=== PATIENT | female | born 1970 | race Caucasian/White ===

== ENCOUNTER 2023-08-15 11:06 | Outpatient (CLI) | payer OTHER, SELFPAY | END 2023-08-15 11:07 | disposition home or self-care (01) | LOC: AMB 08-19 12:06 | PROVIDERS: Visit Provider Internal Medicine | DX: R06.09 Other forms of dyspnea (principal); R19.7 Diarrhea, unspecified | CPT/HCPCS: A0425; A0427 ==

== ENCOUNTER 2023-08-15 11:35 | Emergency (ER) | payer OTHER, SELFPAY ==
[2023-08-15 11:45] VITALS: BP 147/86; PULSE 89; RESP 18; TEMP 36.3; O2SAT 96
--- NOTE | 2023-08-15 12:03 | CRLHL7_ITS ---
For Patients: As a result of the Century Cures Act, medical imaging exams and procedure reports are released immediately into your electronic medical record. You may view this report before your referring provider. If you have questions, please contact your health care provider. INDICATION: Patient with a cough COMPARISON: None TECHNIQUE: PA and lateral views of the chest were acquired FINDINGS: TUBES AND LINES: None. HEART AND MEDIASTINUM: The heart size is normal. The mediastinal contour appears normal for patient age. LUNGS AND PLEURAL SPACES: The lungs appear normal.The pleural spaces are unremarkable. OSSEOUS STRUCTURES: Age-appropriate appearance. No acute focal finding. IMPRESSION: No evidence of active pulmonary disease. Dictated by Cuco Corbin MD @ 08/15/2023 12:23:31 PM (Electronically Signed)
--- NOTE | 2023-08-15 12:05 | ED_ITS ---
HPI - General Adult General Date Seen: 08/15/23 Chief complaint: Dizziness/Vertigo Stated complaint: Elevated heartrate Time Seen by Provider: 08/15/23 11:51 Source: patient, EMS, RN notes reviewed and old records reviewed Mode of arrival: EMS Limitations: no limitations History of Present Illness HPI narrative: Patient is a 52-year-old woman sent here from urgent care by ambulance for frankie luation of multiple symptoms. She is in the area [place] doing some training, staying at a hotel. [place]. For the past few days she says that she has felt fatigued, she has had headache, finds it difficult to take a deep breath, feels her upper abdomen is bloated, is dizzy. No documented fever but she says she felt chilled yesterday. She started Ozempic 6-12 months ago but says she has actually gained weight while taking it, but does note that it has decreased her appetite and sometimes she feels nauseated after she eats. She has not had vomiting. Denies diarrhea. She has not had chest pain although sometimes her chest feels heavy she thinks because her abdomen feels so bloated. She is scheduled for hysterectomy and bladder sling in a couple of weeks. She notes that she has been diagnosed with diabetes but not on any medications. She does not smoke, denies alcohol use. Related Data Home Medications Medication Instructions Recorded Confirmed atorvastatin 20 mg tablet 20 mg PO DAILY 08/15/23 08/15/23 dextroamphetamine-amphetamine 20 1 tab PO 3XD 08/15/23 08/15/23 mg tablet doxepin 10 mg capsule mg PO 08/15/23 08/15/23 fluoxetine 40 mg capsule 40 mg PO DAILY 08/15/23 08/15/23 levothyroxine 200 mcg tablet 200 mcg PO DAILY 08/15/23 08/15/23 semaglutide 1 mg/dose (4 mg/3 mL) mg subcut 08/15/23 08/15/23 subcutaneous pen injector (Ozempic) venlafaxine 75 mg capsule,extended 225 mg PO DAILY 08/15/23 08/15/23 release 24 hr Allergies Allergy/AdvReac Type Severity Reaction Status Date / Time No Known Drug Allergies Allergy Verified 08/15/23 10:40 Review of Systems Status of ROS: Reports: 10 or more systems reviewed and unremarkable except as noted in History and below PFSH PFSH Social History Smoking Status: Never smoker Non-prescribed substance use: denies use Exam Narrative: Exam Narrative: Vital signs as noted above. In general, an alert, nontoxic woman. She was reportedly diaphoretic EN route, she is not diaphoretic at this time. Head: Normocephalic, atraumatic. Eyes: Pupils are equal reactive. Extraocular movements are full. Conjunctivae are normal. No scleral icterus. ENT: Mucous membranes are moist. Throat is normal. Neck: Supple without lymphadenopathy. Heart: Regular rate and rhythm. No murmur or rub. Lungs: Clear bilaterally. No increased work of breathing, crackles or wheezes. Abdomen: Soft and nontender. Nondistended. Extremities: Well perfused. No edema. No calf tenderness. Pulses intact. Neurologic: Patient is alert and oriented to person and place. Speech is fluent. Face is symmetric. Moves all extremities equally. Affect: Normal. Skin: Warm and dry. Well perfused. Const: Vital Signs, click to edit/add: Vital Signs - 24 hr 08/15/23 11:45 Temperature 97.3 F L Pulse Rate [Right Pulse Oximeter] 89 Respiratory Rate 18 Blood Pressure [Ri ght Upper Arm] 147/86 H Pulse Oximetry 96 Oxygen Delivery Me thod Room Air Documenting provider has reviewed patient's vital signs: yes Course Course ED Course: I reviewed labs from Urgent Care which included a CBC and metabolic panel as well as COVID, flu and RSV testing. All of these were normal. Her EKG showed a normal sinus rhythm, ventricular rate of 95 beats per minute. No acute ST segment changes. Exam is unremarkable. Will broaden her workup of it, do a chest x-ray, troponin, D-dimer as well as liver function testing and lactate. At this time no obvious signs of sepsis. Chest x-ray by my review was negative, final radiology report was likewise negative. I did labs to evaluate for possible infection or inflammatory process, thyroid abnormalities, cardiac process, PE. These are all unremarkable, troponin is negative, D-dimer is less than 0.27, lactate is 1.7 CRP is less than 0.5. TSH was depressed at 0.094 but free T4 was normal at 1.5, she does take Synthroid. For now, discussed that symptoms may be viral, but I would recommend follow-up with primary care next week for recheck and make sure that nothing has evolved. In the meantime, if she develops severe symptoms, or new symptoms such as high fever, vomiting etcetera, return at any time to the emergency department. Vital Signs Vital signs: Initial Vital Signs Temperature 97.3 F L 08/15/23 11:45 Temperature Source Temporal Artery Scan 08/15/23 11:45 Pulse Rate 89 08/15/23 11:45 Respiratory Rate 18 08/15/23 11:45 Blood Pressure 147/86 H 08/15/23 11:45 Blood Pressure Mean 106 H 08/15/23 11:45 Blood Pressure Position Sitting 08/15/23 11:45 Pulse Oximetry 96 08/15/23 11:45 Oxygen Delivery Method Room Air 08/15/23 11:45 Vital Signs Temperature 97.3 F L 08/15/23 11:45 Pulse Rate 89 08/15/23 11:45 Respiratory Rate 18 08/15/23 11:45 Blood Pressure 147/86 H 08/15/23 11:45 Pulse Oximetry 96 08/15/23 11:45 Oxygen Delivery Method Room Air 08/15/23 11:45 Temperature 97.3 F L 08/15/23 11:45 Pulse Rate 89 08/15/23 11:45 Respiratory Rate 18 08/15/23 11:45 Blood Pressure 147/86 H 08/15/23 11:45 Pulse Oximetry 96 08/15/23 11:45 Oxygen Delivery Method Room Air 08/15/23 11:45 Medications Administered Medications: Discontinued Medications Generic Name Dose Route Start Last Admin Trade Name Freq PRN Reason Stop Dose Admin Sodium Chloride 1,000 mls @ 1,000 mls/hr 08/15/23 12:15 08/15/23 13:26 0.9 % Sodium Chloride 1000 Ml IV 08/15/23 13:14 Infused .Q1H ROYA Infusion Ketorolac Tromethamine 15 mg 08/15/23 12:03 08/15/23 12:36 Ketorolac 15 Mg/Ml Inj IVP 08/15/23 12:04 15 mg ONCE ONE Administration Ondansetron HCl 4 mg 08/15/23 12:50 08/15/23 12:59 Ondansetron 2 Mg/Ml Inj IVP 08/15/23 12:51 4 mg ONCE ONE Administration Medical Decision Making Lab Data Labs: Lab Results 08/15/23 08/15/23 Range/Units 12:15 12:25 D-Dimer Quant (PE/DVT) < 0.27 (0.00-0.50) ug/ml Lactate 1.7 (0.5-1.9) mmol/L Total Bilirubin 0.3 (0.1-1.5) mg/dL Direct Bilirubin 0.0 (0.0-0.5) mg/dL AST 30 (12-35) U/L ALT 32 (4-35) U/L Alkaline Phosphatase 79 (40-150) U/L C-Reactive Protein < 0.5 L (0.5-1.0) mg/dL Total Protein 7.4 (6.0-8.3) g/dL Albumin 4.3 (3.3-5.0) g/dL Lipase 105 (23-300) U/L TSH 0.094 L (0.270-4.200) uIU/mL Free T4 1.51 (0.70-1.85) ng/dL Urine Color Yellow (Yellow) Urine Appearance Slightly Cloudy A (Clear) Urine pH 7.0 (5.0-8.5) Ur Specific [place] 1.020 (1.000-1.030) Urine Protein Negative (Negative) Urine Glucose (UA) Negative (Negative) Urine Ketones 1+ A (Negative) Urine Blood 2+ A (Negative) Urine Nitrite Negative (Negative) Urine Bilirubin Negative (Negative) Urine Urobilinogen 0.2 (0.2-1.0) Ur Leukocyte Esterase Negative (Negative) Urine RBC 5-10 A (0-2) Urine WBC 2-5 (0-5) Ur Squamous Epith Cells Few (None-Few) Urine Bacteria Few A (None) POC Troponin I 0.00 L (0.01-0.04) ng/ml Discharge Plan Discharge Clinical Impression: Malaise Patient Disposition: Home, Self-Care Condition: Improved Instructions: Fatigue (ED) Additional Instructions: Would recommend recheck with your primary clinic when you get back home. If at any time you have significant worsening symptoms or new symptoms such as high fever, vomiting, severe pain, return to the emergency department for re- evaluation. Your workup here today including blood counts, electrolytes, kidney and liver function, labs to evaluate for heart attack, blood clot and infection are all normal. Chest x-ray was normal. Prescriptions: No Action Ozempic 1 mg/dose (4 mg/3 mL) pen injector subcut fluoxetine 40 mg capsule 40 mg PO DAILY venlafaxine 75 mg capsule,extended release 24hr 225 mg PO DAILY dextroamphetamine-amphetamine 20 mg tablet 1 tab PO 3XD atorvastatin 20 mg tablet 20 mg PO DAILY levothyroxine 200 mcg tablet 200 mcg PO DAILY doxepin 10 mg capsule PO Follow Up/Referrals: Provider,Not a Local [Primary Care Provider] - Stand Alone Forms: [employer] Info Instructions
[2023-08-15 12:25] LABS: Appearance Urine Slightly Cloudy (Clear); Bilirubin Urine Negative (Negative); Blood Urine 2+ (Negative); Color Urine Yellow (Yellow); Glucose Urine Negative (Negative); Ketones Urine 1+ (Negative); Leukocyte Esterase Urine Negative (Negative); Nitrite Urine Negative (Negative); Protein Urine Negative (Negative); Urobilinogen Urine 0.2 (0.2-1.0)
[2023-08-15 12:32] LABS: Lactate* 1.7 mmol/L (0.5-1.9)
[2023-08-15] MEDS: 0.9 % SODIUM CHLORIDE 1000 ml 1,000 ML IV (12:36)
[2023-08-15] MEDS: KETOROLAC 15 MG/ML inj IVP (12:36)
[2023-08-15 12:42] LABS: Bacteria Urine Few; Squamous Epithelial Cell Urine Few (None-Few)
[2023-08-15 12:54] LABS: Albumin* 4.3 g/dL (3.3-5.0)
[2023-08-15 12:57] LABS: Alanine Aminotransferase* 32 U/L (4-35); Alkaline Phosphatase* 79 U/L (40-150); Aspartate Amino Transferase* 30 U/L (12-35); Bilirubin Total* 0.3 mg/dL (0.1-1.5); Lipase* 105 U/L (23-300); Total Protein* 7.4 g/dL (6.0-8.3)
[2023-08-15] MEDS: ONDANSETRON 2 MG/ML inj 4 MG IVP (12:59)
[2023-08-15 13:00] LABS: C Reactive Protein* < 0.5 mg/dL (0.5-1.0)
[2023-08-15 13:03] LABS: D Dimer Quantitative* < 0.27 ug/ml (0.00-0.50)
[2023-08-15 13:28] LABS: TSH With Reflex to FT4* 0.094 uIU/mL (0.270-4.200)
[2023-08-15 14:03] LABS: Free T4 Free Thyroxine* 1.51 ng/dL (0.70-1.85)
[2023-08-15 14:55] VITALS: BP 140/78; PULSE 68; RESP 16; TEMP 36.6; O2SAT 95
== END 2023-08-15 15:00 | disposition home or self-care (01) ==
PROVIDERS: Emergency Provider Emergency Medicine
DX: R53.81 Other malaise (principal)
CPT/HCPCS: 36415; 71046; 80076; 81001; 83605; 83690; 84439; 84443; 84484; 85379; 86140; 87086; 96374; 96375; 99284; 99285; J1885; J2405; J7030